=== PATIENT | female | born 1960 | race Caucasian/White ===

== ENCOUNTER 2019-08-07 11:37 | Outpatient (CLI) | payer MEDICAID ==
[~2019-08-07 11:37] MED LIST: AMIT25TA9 PO; BUPR150T8 PO; ESCI20TA38 PO; LEVO175T7 PO; MULT-1179 PO
[2019-08-07 13:04] LABS: HEMOGLOBIN A1C 5.9 % (4.5-6.2)
[2019-08-08] MEDS ORDERED: LOSA25TA96 PO (08:17)
[2019-08-08] MEDS ORDERED: NAPR-56 PO (08:17)
[2019-08-08] MEDS ORDERED: FURO20TA4 PO (08:17)
[2019-08-08] MEDS ORDERED: LEVO112T5 PO (08:17)
[2019-08-08] MEDS ORDERED: ATOR10TA87 PO (08:17)
[2019-08-08] MEDS ORDERED: CPAP (08:17)
[2019-08-08] MEDS ORDERED: ROPI2TAB29 PO (08:17)
[2019-08-08] MEDS ORDERED: POTA10TA19 PO (08:17)
[2019-08-08] MEDS ORDERED: TRAZ-219 PO (08:17)
[2019-08-08] MEDS ORDERED: GABA-532 PO (08:17)
[2019-08-08] MEDS ORDERED: METF500T PO (08:17)
[2019-08-08] MEDS ORDERED: BUSP10TA3 PO (08:17)
== END 2019-08-07 23:59 | disposition home or self-care (01) ==
LOC: LAB 11:37
PROVIDERS: ATTEND Nurse Practitioner Family
DX: E03.9 Hypothyroidism, unspecified (principal)
CPT/HCPCS: 36415; 83036; 84443

== ENCOUNTER 2019-08-08 06:53 | Day surgery (SDC) | payer MEDICAID ==
[2019-08-07 11:26] LABS: BASOPHILS % (AUTO) 0.7 % (0-1); EOSINOPHILS # (AUTO) 0.1 X10'3 (0-0.9); EOSINOPHILS % (AUTO) 0.9 % (0-6); HEMOGLOBIN 12.4 g/dl (12.0-16.0); LYMPHOCYTES # (AUTO) 1.5 X10'3 (1.1-4.8); LYMPHOCYTES % (AUTO) 22.3 % (21-51); MEAN CORPUSCULAR HEMOGLOBIN 32.7 PG (27.0-31.0); MEAN CORPUSCULAR HGB CONC 34.3 g/dL (33.0-36.5); MEAN CORPUSCULAR VOLUME 95.2 FL (78-98); MEAN PLATELET VOLUME 8.7 FL (7.4-10.4); MONOCYTES # (AUTO) 0.3 X10'3 (0-0.9); MONOCYTES % (AUTO) 4.6 % (2-12); NEUTROPHILS # (AUTO) 4.9 X10'3 (1.8-7.7); NEUTROPHILS % (AUTO) 71.5 % (42-75); PLATELET COUNT 211 X10'3 (140-440); RED BLOOD COUNT 3.79 X10'6 (4.20-5.60); RED CELL DISTRIBUTION WIDTH 14.1 % (11.5-14.5); WHITE BLOOD COUNT 6.9 X10'3 (4.5-11.0)
[2019-08-07 11:34] LABS: PARTIAL THROMBOPLASTIN TIME 26 SECONDS (22-32)
[2019-08-07 11:39] LABS: ALANINE AMINOTRANSFERASE 37 U/L (12-78); ALBUMIN 4.1 G/DL (3.4-5.0); ALBUMIN/GLOBULIN RATIO 1.2 (1.1-1.5); ALKALINE PHOSPHATASE 118 IU/L (46-116); ANION GAP 10 (8-16); ASPARTATE AMINO TRANSFERASE 26 U/L (10-37); BILIRUBIN,TOTAL 0.6 MG/DL (0.1-1.0); BLOOD UREA NITROGEN 17 MG/DL (7-18); CALCIUM 9.2 MG/DL (8.5-10.1); CHLORIDE 106 MMOL/L (99-107); GLUCOSE 132 MG/DL (70-104); POTASSIUM 3.8 MMOL/L (3.5-5.1); SODIUM 141 MMOL/L (135-145); TOTAL CARBON DIOXIDE 25.3 MMOL/L (24-32); TOTAL PROTEIN 7.5 G/DL (6.4-8.2); eGFR 57 ML/MIN
[2019-08-08] VITALS (14 sets, daily range): BP systolic 107–173; BP diastolic 48–102
[~2019-08-08] VITALS: Ht 165.1 cm; Wt 118.8 kg
[2019-08-08] MEDS ORDERED: dextrose ORAL solution 15 GM/59 ML bottle PO PRN ×2 (08:00)
[2019-08-08] MEDS ORDERED: insulin Lispro (HumaLOG) vial - multi-dose SQ SCH (08:00)
[2019-08-08] MEDS ORDERED: diphenhydrAMINE 25mg capsule PO PRN (08:00)
[2019-08-08] MEDS ORDERED: LORazepam 0.5 MG tablet PO PRN (08:00)
[2019-08-08] MEDS ORDERED: MESSAGE TO PHARMACY PO ONE (08:00)
[2019-08-08] MEDS ORDERED: normal saline 1,000 ML IV SCH (08:00)
[2019-08-08] MEDS ORDERED: glucagon, human recombinant 1mg kit SUBCUT PRN (08:00)
[2019-08-08] MEDS ORDERED: dextrose 50%-water 50ml dispensing syringe IV PRN ×2 (08:00)
[2019-08-08] MEDS ORDERED: nitroGLYCERIN 0.4mg SUBLingual tab SL PRN ×2 (08:00→10:50)
[2019-08-08] MEDS ORDERED: LOSA25TA96 PO (08:17)
[2019-08-08] MEDS ORDERED: LEVO112T5 PO (08:17)
[2019-08-08] MEDS ORDERED: FURO20TA4 PO (08:17)
[2019-08-08] MEDS ORDERED: ROPI2TAB29 PO (08:17)
[2019-08-08] MEDS ORDERED: POTA10TA19 PO (08:17)
[2019-08-08] MEDS ORDERED: TRAZ-219 PO (08:17)
[2019-08-08] MEDS ORDERED: ATOR10TA87 PO (08:17)
[2019-08-08] MEDS ORDERED: NAPR-56 PO (08:17)
[2019-08-08] MEDS ORDERED: METF500T PO (08:17)
[2019-08-08] MEDS ORDERED: GABA-532 PO (08:17)
[2019-08-08] MEDS ORDERED: CPAP (08:17)
[2019-08-08] MEDS ORDERED: BUSP10TA3 PO (08:17)
[2019-08-08] MEDS ORDERED: LIDOcaine 1% (10mg/ml)w/preservative injection 20ml MDV ONE (09:16)
[2019-08-08] MEDS ORDERED: iohexol 350MG/ML 100ml bottle IV ONE (09:16)
[2019-08-08] MEDS ORDERED: fentaNYL/PF 50MCG/1 ML 2ML syringe ONE (09:16)
[2019-08-08] MEDS ORDERED: midazolam 2 mg/2 ml injection ONE (09:16)
[2019-08-08] MEDS ORDERED: iohexol 350 MG/ML 50ML vial IV ONE (09:16)
[2019-08-08] MEDS ORDERED: proCHLORperazine 10 MG/2 ml inj ONE (09:44)
[2019-08-08] MEDS ORDERED: hydrALAZINE 20mg/ml inj. IV ONE (09:59)
[2019-08-08] MEDS ORDERED: OXAZEpam 15mg capsule PO PRN (10:50)
[2019-08-08] MEDS ORDERED: proCHLORperazine 10 MG/2 ml inj IV PRN (10:50)
[2019-08-08] MEDS ORDERED: HYDROcodone/acetaminophen 5mg/325mg tablet PO PRN (10:50)
[2019-08-08] MEDS ORDERED: ondansetron/PF 4mg/2ml inj IV PRN (10:50)
[2019-08-08] MEDS ORDERED: HYDROcodone/acetaminophen 10/325mg tab PO PRN (10:50)
[2019-08-08] MEDS ORDERED: normal saline 1000ml 1,000 ML IV SCH (10:50)
[2019-08-08] MEDS ORDERED: ROPINIRole 1mg tablet PO SCH (11:00)
[2019-08-08] MEDS ORDERED: losartan 25mg tablet PO SCH (11:00)
[2019-08-08] MEDS ORDERED: insulin glargine (Lantus) pen - multi-dose SQ SCH (21:00)
== END 2019-08-08 17:35 | disposition home or self-care (01) ==
LOC: SSTAY O 06:53
PROVIDERS: ATTEND Internal Medicine Cardiovascular Disease
DX: R94.39 Abnormal result of other cardiovascular function study (principal); G47.33 Obstructive sleep apnea (adult) (pediatric); E11.9 Type 2 diabetes mellitus without complications; I10 Essential (primary) hypertension; E03.9 Hypothyroidism, unspecified; E78.5 Hyperlipidemia, unspecified; Z79.899 Other long term (current) drug therapy; Z79.82 Long term (current) use of aspirin; Z79.01 Long term (current) use of anticoagulants
CPT/HCPCS: 36415; 71046; 80053; 82948; 85025; 85610; 85730; 93458; 99152; 99153; C1769; J0360; J0780; J1644; J2001; J2250; J3010; J7030; Q0163; Q9967; A4620; A6258; C1760; J1815

== ENCOUNTER 2023-04-20 13:27 | Outpatient (CLI) | payer MEDICARE, MEDICAID ==
[~2023-04-20 13:27] MED LIST changes: -AMIT25TA9 PO; +ATOR10TA87 PO; -BUPR150T8 PO; +BUSP10TA3 PO; +CPAP; -ESCI20TA38 PO; +FURO20TA4 PO; +GABA-532 PO; +LEVO112T5 PO; -LEVO175T7 PO; +LOSA25TA96 PO; +METF500T PO; -MULT-1179 PO; +NAPR-56 PO; +POTA-192 PO; +ROPI2TAB29 PO; +TRAZ-256 PO
== END 2023-04-20 23:59 | disposition home or self-care (01) ==
LOC: RAD 13:27
PROVIDERS: ATTEND Psychiatry & Neurology Neurology
DX: R13.14 Dysphagia, pharyngoesophageal phase (principal); R13.12 Dysphagia, oropharyngeal phase; K21.9 Gastro-esophageal reflux disease without esophagitis; R47.1 Dysarthria and anarthria
CPT/HCPCS: 74230

== ENCOUNTER 2024-05-07 11:00 | Inpatient (IN) | payer MEDICARE, MEDICAID ==
[~2024-05-07] VITALS: Ht 165.1 cm; Wt 130.3 kg
[~2024-05-07 11:00] MED LIST changes: -BUSP10TA3 PO; -CPAP; -GABA-532 PO; -LEVO112T5 PO; +LOSA-415 PO; -LOSA25TA96 PO; -METF500T PO; -NAPR-56 PO; -POTA-192 PO; -ROPI2TAB29 PO
[2024-06-26 14:23] LABS: BASOPHILS % (AUTO) 0.7 % (0-1); EOSINOPHILS # (AUTO) 0.2 X10'3 (0-0.9); EOSINOPHILS % (AUTO) 3.1 % (0-6); LYMPHOCYTES % (AUTO) 18.9 % (21-51); MEAN CORPUSCULAR HEMOGLOBIN 32.7 PG (27.0-31.0); MEAN CORPUSCULAR HGB CONC 33.9 g/dL (33.0-36.5); MEAN CORPUSCULAR VOLUME 96.5 FL (78-98); MEAN PLATELET VOLUME 7.4 FL (7.4-10.4); MONOCYTES # (AUTO) 0.3 X10'3 (0-0.9); MONOCYTES % (AUTO) 5.6 % (2-12); NEUTROPHILS # (AUTO) 3.9 X10'3 (1.8-7.7); NEUTROPHILS % (AUTO) 71.7 % (42-75); PRE OP HEMATOCRIT 37.6 % (35.0-45.0); PRE OP HEMOGLOBIN 12.7 g/dL (12.0-16.0); PRE OP PLATELET COUNT 213 X10'3 (140-440); PRE OP WHITE BLOOD COUNT 5.5 10'3 (4.8-10.8); RED BLOOD COUNT 3.89 X10'6 (4.20-5.60); RED CELL DISTRIBUTION WIDTH 14.2 % (11.5-14.5)
[2024-06-26 14:31] LABS: ALBUMIN 3.6 G/DL (3.4-5.0); ALBUMIN/GLOBULIN RATIO 1.2 (1.1-1.5); ALKALINE PHOSPHATASE 142 IU/L (46-116); BLOOD UREA NITROGEN 13 MG/DL (7-18); BUN/CREATININE RATIO 16.3 (10.0-20.0); CALCIUM 8.7 MG/DL (8.5-10.1); CHLORIDE 104 MMOL/L (99-107); PRE OP ALT 55 U/L (30-65); PRE OP ANION GAP 7 (8-16); PRE OP AST 26 U/L (10-37); PRE OP BILIRUB, TOTAL 0.3 MG/DL (0.0-1.0); PRE OP GLUCOSE 142 MG/DL (70-104); PRE OP SODIUM 137 MMOL/L (135-145); TOTAL CARBON DIOXIDE 26.3 MMOL/L (24-32); TOTAL PROTEIN 6.7 G/DL (6.4-8.2); eGFR 72 ML/MIN
[2024-06-26] MEDS ORDERED: OMEP20CA16 PO (16:58)
[2024-06-26] MEDS ORDERED: CHOL20004 PO (16:58)
[2024-06-26] MEDS ORDERED: CARB100T60 PO (16:58)
[2024-06-26] MEDS ORDERED: MIRA25TA PO (16:58)
[2024-06-26] MEDS ORDERED: MODA200T48 PO (16:58)
[2024-06-29] MEDS ORDERED: ROPI3TAB21 PO (13:05)
[2024-06-29] MEDS ORDERED: LEVO200T8 PO (13:05)
[2024-07-02] VITALS (35 sets, daily range): BP systolic 104–179; BP diastolic 50–106; PULSE 52–73; RESP 13–18; TEMP 97.5–98.9; O2SAT 91–100
[2024-07-02] MEDS ORDERED: cefazolin 2gm/D5W 100mL 100 ML IV ONE (05:30)
[2024-07-02] MEDS ORDERED: vancomycin/NS 1 GM in NS 250 ML IV ONE (05:30)
[2024-07-02] MEDS: famotidine 20mg tablet PO ONE (07:52)
[2024-07-02] MEDS: tranexamic acid 650mg tablet PO ONE (07:53)
[2024-07-02] MEDS: ringers solution, lacted 1,000 ML IV SCH (07:59)
[2024-07-02] MEDS: vancomycin 1,500 MG in NS 300ml IV soln IV ONE (07:59)
[2024-07-02] MEDS ORDERED: morphine 2 MG/ML inj. syringe IV PRN (09:45)
[2024-07-02] MEDS ORDERED: labetalol 20mg/4ml (5mg/ml) syringe IV PRN (09:45)
[2024-07-02] MEDS ORDERED: proCHLORperazine 10 MG/2 ml inj IV PRN (09:45)
[2024-07-02] MEDS ORDERED: meperidine/PF 25mg/ml syringe IV PRN ×2 (09:45)
[2024-07-02] MEDS ORDERED: enalaprilat dihydrate 2.5mg/2ml vial IV PRN (09:45)
[2024-07-02] MEDS ORDERED: ringers solution, lacted 1,000 ML IV SCH (09:45)
[2024-07-02] MEDS ORDERED: fentaNYL/PF 50MCG/1 ML 2ML syringe ONE (10:50)
[2024-07-02] MEDS: albuterol 2.5 MG/3 ML nebule NEB ONE (11:00)
[2024-07-02] MEDS: Cefazolin 3 GM/100ML NS IVPB 100 ML IV ONE (11:15)
[2024-07-02] MEDS: BUPIVACAINE/MELOXICAM 14 ML VIAL IL ONE ×2 (11:40→12:02)
[2024-07-02] MEDS: ondansetron/PF 4mg/2ml inj IV PRN (13:26)
[2024-07-02] MEDS ORDERED: naloxone 0.4 mg/ml inj IV PRN (14:00)
[2024-07-02] MEDS ORDERED: ondansetron/PF 4mg/2ml inj IV PRN (14:00)
[2024-07-02] MEDS ORDERED: bisacodyl 10mg suppository rectal RC PRN (14:00)
[2024-07-02] MEDS ORDERED: acetaminophen 325mg tablet PO PRN (14:00)
[2024-07-02] MEDS ORDERED: diphenhydrAMINE 25mg capsule PO PRN ×2 (14:00)
[2024-07-02] MEDS ORDERED: HYDROmorphone 1 mg/ml syringe IV PRN (14:00)
[2024-07-02] MEDS ORDERED: oxyCODONE IR 5mg (immed. release) tablet PO PRN (14:00)
[2024-07-02] MEDS ORDERED: HYDROmorphone inj. 0.5 MG/0.5 ML DISP.SYRIN IV PRN (14:00)
[2024-07-02] MEDS ORDERED: magnesium hydroxide 30ml (MOM) UD suspension PO PRN (14:00)
[2024-07-02] MEDS ORDERED: furosemide 20MG tablet PO PRN (14:00)
[2024-07-02] MEDS: meperidine/PF 25mg/ml syringe IV PRN (15:40)
[2024-07-02] MEDS: ceFAZolin/D5W- 1GM premix 50 ML IV SCH (16:00)
[2024-07-02] MEDS: morphine 4 MG/ML inj SYRINge IV PRN (16:17)
[2024-07-02] MEDS: acetaminophen 1,000mg/100ml IV 100 ML IV ONE (16:27)
[2024-07-02] MEDS: acetaminophen 325mg tablet PO SCH (18:50)
[2024-07-02] MEDS: potassium cl 20mEq in 1/2 NS 1,000 ML IV SCH (18:53)
[2024-07-02] MEDS: oxyCODONE IR 5mg (immed. release) tablet PO PRN (18:57)
[2024-07-02] MEDS ORDERED: carbamazepine 100mg ER CAPSULE (12-hour) PO SCH (20:00)
[2024-07-02] MEDS: vancomycin/NS 1 GM ADD-VANTAGE 250 ML IV SCH (20:36)
[2024-07-02] MEDS: sennosides 8.6mg tablet PO SCH (20:37)
[2024-07-02] MEDS: losartan 25mg tablet PO SCH (20:38)
[2024-07-02] MEDS: ROPINIRole 1mg tablet PO SCH (20:38)
[2024-07-02] MEDS: traZODone 50mg tablet PO SCH (20:39)
[2024-07-03 02:00] VITALS: BP 138/65; PULSE 65; RESP 16; TEMP 96.9; O2SAT 99
[2024-07-03 05:38] LABS: BASOPHILS % (AUTO) 0.4 % (0-1); EOSINOPHILS # (AUTO) 0.2 X10'3 (0-0.9); EOSINOPHILS % (AUTO) 2.9 % (0-6); HEMATOCRIT 31.8 % (35.0-45.0); HEMOGLOBIN 10.9 g/dl (12.0-16.0); LYMPHOCYTES # (AUTO) 0.6 X10'3 (1.1-4.8); LYMPHOCYTES % (AUTO) 7.6 % (21-51); MEAN CORPUSCULAR HEMOGLOBIN 33.8 PG (27.0-31.0); MEAN CORPUSCULAR HGB CONC 34.3 g/dL (33.0-36.5); MEAN CORPUSCULAR VOLUME 98.4 FL (78-98); MEAN PLATELET VOLUME 7.7 FL (7.4-10.4); MONOCYTES # (AUTO) 0.5 X10'3 (0-0.9); MONOCYTES % (AUTO) 7.3 % (2-12); NEUTROPHILS # (AUTO) 6.1 X10'3 (1.8-7.7); NEUTROPHILS % (AUTO) 81.8 % (42-75); PLATELET COUNT 200 X10'3 (140-440); RED BLOOD COUNT 3.23 X10'6 (4.20-5.60); RED CELL DISTRIBUTION WIDTH 14.2 % (11.5-14.5); WHITE BLOOD COUNT 7.4 X10'3 (4.5-11.0)
[2024-07-03 05:45] LABS: ANION GAP 8 (8-16); CHLORIDE 104 MMOL/L (99-107); POTASSIUM 4.4 MMOL/L (3.5-5.1); SODIUM 139 MMOL/L (135-145); TOTAL CARBON DIOXIDE 26.6 MMOL/L (24-32)
[2024-07-03 06:00] VITALS: BP 149/66; PULSE 63; RESP 16; TEMP 97.5; O2SAT 93
[2024-07-03] MEDS: levoTHYROXINE 100mcg tablet PO SCH (07:44)
[2024-07-03] MEDS: ceFAZolin/D5W- 1GM premix 50 ML IV SCH (07:44)
[2024-07-03 07:45] VITALS: RESP 16
[2024-07-03] MEDS ORDERED: modafinil 100mg tablet PO SCH (08:00)
[2024-07-03] MEDS: atorvastatin 10mg tablet PO SCH (08:00)
[2024-07-03] MEDS: aspirin 325mg tablet PO SCH (09:13)
[2024-07-03] MEDS: mirabegron 25mg ER tablet PO SCH (09:14)
[2024-07-03] MEDS: pantoprazole 40mg Tablet.DR PO SCH (09:14)
[2024-07-03] MEDS: carbamazepine 100mg ER CAPSULE (12-hour) PO SCH (09:15)
[2024-07-03] MEDS: cholecalciferol (vitamin D3) 1,000 unit (25mcg) tablet PO SCH (09:15)
[2024-07-03 10:15] VITALS: RESP 18
[2024-07-03] MEDS ORDERED: celeCOXIB 100mg capsule PO SCH (20:00)
[2024-07-04] MEDS ORDERED: acetaminophen 325mg tablet PO PRN (18:20)
== END 2024-07-03 11:33 | disposition home health service (06) | DRG 470 ==
LOC: PAS IN 07-02 06:57 → ORTHO 4S 07-02 17:00
PROVIDERS: ADMIT Orthopaedic Surgery; ATTEND Orthopaedic Surgery
PROC: 3E0T3BZ Introduction of Anesthetic Agent into Peripheral Nerves and Plexi, Percutaneous Approach (ICD-10-PCS; 2024-07-02)
PROC: 3E0T33Z Introduction of Anti-inflammatory into Peripheral Nerves and Plexi, Percutaneous Approach (ICD-10-PCS; 2024-07-02)
PROC: 8E0YXBZ Computer Assisted Procedure of Lower Extremity (ICD-10-PCS; 2024-07-02)
PROC: 8E0Y0CZ Robotic Assisted Procedure of Lower Extremity, Open Approach (ICD-10-PCS; 2024-07-02)
PROC: 0SRD0J9 Replacement of Left Knee Joint with Synthetic Substitute, Cemented, Open Approach (ICD-10-PCS; principal; 2024-07-02 10:50)
PROC: 5A09357 Assistance with Respiratory Ventilation, Less than 24 Consecutive Hours, Continuous Positive Airway Pressure (ICD-10-PCS; 2024-07-03)
DX: M17.12 Unilateral primary osteoarthritis, left knee (principal); Z68.42 Body mass index [BMI] 45.0-49.9, adult; G47.30 Sleep apnea, unspecified; E78.5 Hyperlipidemia, unspecified; E11.9 Type 2 diabetes mellitus without complications; F41.9 Anxiety disorder, unspecified; E66.9 Obesity, unspecified; Z79.899 Other long term (current) drug therapy
CPT/HCPCS: 36415; 80051; 80053; 82948; 85025; 87081; 97110; 97116; 97161; A4215; A4618; A6253; A6258; A6446; A6449; A7000; C1713; C1776; G0378; J0131; J0690; J2175; J2250; J2270; J2405; J2795; J3010; J3370; J3480; J7120

== ENCOUNTER 2024-07-09 14:21 | Emergency (ER) | payer MEDICARE, MEDICAID ==
[~2024-07-09] VITALS: Ht 167.6 cm; Wt 129.6 kg
[~2024-07-09 14:21] MED LIST changes: +CARB100T60 PO; +CHOL20004 PO; +LEVO200T8 PO; +MIRA25TA PO; +MODA200T48 PO; +OMEP20CA16 PO; +ROPI3TAB21 PO
[2024-07-09 15:26] LABS: BASOPHILS # (AUTO) 0.1 X10'3 (0-0.2); BASOPHILS % (AUTO) 0.9 % (0-1); EOSINOPHILS # (AUTO) 0.7 X10'3 (0-0.9); EOSINOPHILS % (AUTO) 10.7 % (0-6); HEMATOCRIT 32.8 % (35.0-45.0); HEMOGLOBIN 10.9 g/dl (12.0-16.0); LYMPHOCYTES % (AUTO) 14.9 % (21-51); MEAN CORPUSCULAR HEMOGLOBIN 32.7 PG (27.0-31.0); MEAN CORPUSCULAR HGB CONC 33.2 g/dL (33.0-36.5); MEAN CORPUSCULAR VOLUME 98.7 FL (78-98); MEAN PLATELET VOLUME 7.2 FL (7.4-10.4); MONOCYTES # (AUTO) 0.4 X10'3 (0-0.9); MONOCYTES % (AUTO) 5.9 % (2-12); NEUTROPHILS # (AUTO) 4.5 X10'3 (1.8-7.7); NEUTROPHILS % (AUTO) 67.6 % (42-75); PLATELET COUNT 314 X10'3 (140-440); RED BLOOD COUNT 3.32 X10'6 (4.20-5.60); RED CELL DISTRIBUTION WIDTH 14.4 % (11.5-14.5); WHITE BLOOD COUNT 6.6 X10'3 (4.5-11.0)
[2024-07-09 16:35] VITALS: BP 130/78; PULSE 67; RESP 16; TEMP 98.1; O2SAT 99
== END 2024-07-09 16:37 | disposition home or self-care (01) ==
LOC: ER 14:22
DX: T81.30XA Disruption of wound, unspecified, initial encounter (principal); Z79.899 Other long term (current) drug therapy
CPT/HCPCS: 12001; 36415; 85025; 99283